=== PATIENT | male | born 1960 | race African-American/Black ===

== ENCOUNTER 2023-05-20 00:36 | Day surgery (SDC) | payer OTHER, SELFPAY ==
[2023-04-22 13:41] VITALS: BMI 33.0
--- NOTE | 2023-05-16 11:32 | SUR.PREOP ---
Patient called regarding upcoming procedure. Reviewed preop instructions, appointment times, and procedure prep.
--- NOTE | 2023-05-19 16:33 | PM.HPGS ---
History of Present Illness History of Present Illness Consent: Risks, benefits, and alternatives have been discussed and questions answered. Patient agrees to proceed with procedure. Chief complaint: neoplasm screening Narrative: Fernandez Rubalcava is a 62 year old male who was referred for colon cancer screening. Review of Systems Review of Systems: All systems reviewed & are unremarkable except as noted in HPI and below PMFSH Past Medical History Medical History Cobalamin deficiency Surgical History Surgical History History of meniscal tear History of Shaheed-en-Y gastric bypass History of vasectomy Social History Social History Smoking status: Never smoker Second hand tobacco smoke exposure: No Alcohol intake: never Substance use: never Substance use type: does not use Living arrangements: alone Occupation/Education: occupation Gender identity (if verbalized by the patient): Male Sexual Orientation (if Verbalized by the Patient): Straight or Heterosexual Spiritual care concerns: No Meds Home Medications and Allergies Home Medications Medication Instructions Recorded Confirmed Type cyanocobalamin (vitamin B-12) 1,000 mcg IM MONTHLY #10 mL 03/03/23 04/22/23 Rx 1,000 mcg/mL injection solution syringe with needle 3 mL 23 x 1 #50 ea 03/03/23 04/22/23 Rx (BD [facility]) triamcinolone acetonide 0.1 % 1 applic topical BID #30 grams 03/03/23 04/22/23 Rx topical cream Allergies Allergy/AdvReac Type Severity Reaction Status Date / Time No Known Allergies Allergy Verified 05/20/23 08:25 Exam Resp: Auscultation: clear to auscultation bilaterally Cardio: Rate: regular rate Rhythm: regular rhythm GI: GI Palp: Yes Soft to palpation and No Tenderness to palpation present (GI) Assessment and Plan Assessment and plan (1) Colon cancer screening: Code(s): Z12.11 - Encounter for screening for malignant neoplasm of colon Status: Acute Assessment and Plan: Colonoscopy with possible biopsy or polypectomy or cautery or injection of substances.
[2023-05-20 08:27] VITALS: BP 142/91; PULSE 89; RESP 18; TEMP 36.2; O2SAT 98
[2023-05-20] MEDS: LACTATED RINGERS 1,000 ML 150 ML IV CONT (08:38)
--- NOTE | 2023-05-20 08:45 | WPDANESEPPF ---
Anes - Initial Pre Proc Eval Procedure: Operation Date: 05/20/23 09:30 Proposed Procedures p Screening Colonoscopy - Karlos Soliz MD Date/Time: 05/20/23 08:45 Surgeon: Karlos Soliz MD Pre Op Diagnosis: neoplasm screening Patient Data Age: 62 Gender: M Height: 1.85 m Weight: 113.3 kg Last Vital Signs Temp 97.1 F L 05/20/23 08:27 Pulse 89 05/20/23 08:27 Resp 18 05/20/23 08:27 BP 142/91 H 05/20/23 08:27 Pulse Ox 98 05/20/23 08:27 O2 Del Method Room Air 05/20/23 08:27 Allergies Allergy/AdvReac Type Severity Reaction Status Date / Time No Known Allergies Allergy Verified 05/20/23 08:25 Home Medications Medication Instructions Recorded Confirmed Type cyanocobalamin (vitamin B-12) 1,000 mcg IM MONTHLY #10 mL 03/03/23 04/22/23 Rx 1,000 mcg/mL injection solution syringe with needle 3 mL 23 x 1 #50 ea 03/03/23 04/22/23 Rx (BD [facility]) triamcinolone acetonide 0.1 % 1 applic topical BID #30 grams 03/03/23 04/22/23 Rx topical cream Patient hx anesthesia problems: none Family hx anesthesia problems: none Results Review: All pre-operative results and documents have been reviewed as part of the pre-operative evaluation. [facility] Past Medical History Medical History Cobalamin deficiency Surgical History Surgical History History of meniscal tear History of Shaheed-en-Y gastric bypass History of vasectomy Social History Social History Smoking status: Never smoker Second hand tobacco smoke exposure: No Alcohol intake: never Substance use: never Substance use type: does not use Living arrangements: alone Occupation/Education: occupation Gender identity (if verbalized by the patient): Male Sexual Orientation (if Verbalized by the Patient): Straight or Heterosexual Spiritual care concerns: No Anes - Eval Final PreProcedure Day of Procedure 05/20/23 08:45 Patient weight: obese Heart: regular rate and rhythm Lungs: clear to auscultation Airway: Mallampati scale class II Neurological: alert and oriented Last oral intake: >/= 8 hours ASA classification: III Emergent: no Anesthetic plan: proceed Anesthesia type and monitoring: general GIVS and standard monitoring Results Review: All pre-operative results and documents have been reviewed as part of the pre-operative evaluation. Informed Consent: The patient's anesthetic plan and its attendant risks and benefits were discussed with the patient/family/POA. Questions were solicited and answers provided to the satisfaction of the patient/family/POA.
[2023-05-20 09:56] VITALS: BP 108/75; PULSE 73; RESP 18; O2SAT 99
[2023-05-20 10:04] VITALS: BP 109/72; PULSE 66; RESP 15; O2SAT 99
[2023-05-20 10:14] VITALS: BP 109/71; PULSE 69; RESP 15; O2SAT 98
== END 2023-05-20 10:25 | disposition home or self-care (01) ==
PROVIDERS: PCP Family Medicine; Visit Provider Internal Medicine Gastroenterology
PROC: 0DJD8ZZ Inspection of Lower Intestinal Tract, Via Natural or Artificial Opening Endoscopic (ICD-10-PCS; CPT 45378; principal; 2023-05-20 09:30)
DX: Z12.11 Encounter for screening for malignant neoplasm of colon (principal); D12.2 Benign neoplasm of ascending colon; E66.9 Obesity, unspecified; Z68.33 Body mass index [BMI] 33.0-33.9, adult; E53.8 Deficiency of other specified B group vitamins; Z98.890 Other specified postprocedural states; Z98.84 Bariatric surgery status
CPT/HCPCS: 45381; 45385; 88305; J2704; J7120